=== PATIENT | female | born 1950 | race Caucasian/White ===

== ENCOUNTER 2020-10-14 11:38 | Emergency (ER) | payer MEDICARE ==
[2020-10-14 11:46] VITALS: BP 143/62
[2020-10-14] MEDS ORDERED: HYDROCODONE/ACETAMINOPHEN 5-325 MG TABLET PO ONE (12:09)
--- NOTE | 2020-10-14 12:10 | ER Document Report ---
HPI - HPI Patient complains to provider of: Left foot, right knee injury Time Seen by Provider: 10/14/20 12:04 Onset: This morning Onset/Duration: Sudden Quality of pain: Achy Pain Level: 1 Context: Patient states that she slipped down 3 steps. Patient reports left foot pain and right knee pain. Patient denies any head injury or loss of consciousness. Associated Symptoms: Other - Left foot, right knee injury Exacerbated by: Standing, Movement, Walking Relieved by: Denies Similar symptoms previously: No Recently seen / treated by doctor: No - ROS ROS below otherwise negative: Yes Systems Reviewed and Negative: Yes All other systems reviewed and negative - GASTROINTESTINAL Gastrointestinal: DENIES: Nausea - MUSCULOSKELETAL Musculoskeletal: REPORTS: Extremity pain, Swelling - DERM Skin Color: Normal Skin Problems: None Past Medical History - General Information source: Patient - Social History Smoking Status: Never Smoker Chew tobacco use (# tins/day): No Frequency of alcohol use: Occasional Drug Abuse: None Lives with: Spouse/Significant other Family History: Reviewed & Not Pertinent Patient has homicidal ideation: No GI Medical History: Reports: Hx Gastroesophageal Reflux Disease Past Surgical History: Reports: Hx Orthopedic Surgery Vertical Provider Document - CONSTITUTIONAL Agree With Documented VS: Yes Exam Limitations: No Limitations General Appearance: WD/WN, No Apparent Distress - HEENT HEENT: Atraumatic, Normocephalic - NECK Neck: Normal Inspection - RESPIRATORY Respiratory: No Respiratory Distress - CARDIOVASCULAR Pulses: Normal: Dorsalis pedis - MUSCULOSKELETAL/EXTREMETIES Musculoskeletal/Extremeties: MAEW, Tender - Right knee tenderness to inferior, medial and lateral compartments, no obvious effusion, no laxity with varus or valgus maneuvers. Patellar tendon intact. Left ankle tenderness over lateral malleolar area, left midfoot tenderness, 1+ edema, no obvious ecchymosis, Edema. negative: Eccymosis - NEURO Level of Consciousness: Awake, Alert, Appropriate Motor/Sensory: No Motor Deficit - DERM Integumentary: Warm, Dry, No Rash Course - Re-evaluation Re-evalutation: 10/14/20 13:51 Spoke with patient regarding the patient's radiology report findings. Patient denies any history of any previous patellar injury. Patient advised that she will need to follow-up with orthopedics for further evaluation of patellar injury as well as talus injury. - Vital Signs Vital signs: Temp Pulse Resp BP Pulse Ox 98.5 F 85 20 143/62 H 98 10/14/20 12:01 10/14/20 11:44 10/14/20 11:44 10/14/20 11:44 10/14/20 11:44 - Laboratory Results Critical Laboratory Results Reviewed: No Critical Results - Radiology Results Critical Radiology Results Reviewed: No Critical Results Procedures - Immobilization Right Knee Pre-Proc Neuro Vasc Exam: Normal Immobilizer type: Knee immobilizer Performed by: PCT Post-Proc Neuro Vasc Exam: Normal Alignment checked and good: Yes Left Foot Pre-Proc Neuro Vasc Exam: Normal Immobilizer type: Posterior ankle Performed by: PCT Post-Proc Neuro Vasc Exam: Normal Alignment checked and good: Yes Discharge - Discharge Clinical Impression: Patellar fracture Qualifiers: Encounter type: initial encounter Fracture type: closed Fracture morphology: unspecified fracture morphology Fracture alignment: nondisplaced Laterality: right Qualified Code(s): S82.001A - Unspecified fracture of right patella, initial encounter for closed fracture Avulsion fracture of talus Qualifiers: Encounter type: initial encounter Fracture type: closed Fracture alignment: nondisplaced Laterality: left Qualified Code(s): S92.155A - Nondisplaced avulsion fracture (chip fracture) of left talus, initial encounter for closed fracture Condition: Stable Disposition: HOME, SELF-CARE Instructions: Avulsion Fracture ([facility]), Fractured Patella ([facility]), Ice & Elevation ([facility]), Knee Immobilizing Splint ([facility]), Oral Narcotic Medication ([facility]), Splint Precautions ([facility]) Additional Instructions: Return immediately for any new or worsening symptoms Followup with your primary care provider, call tomorrow to make a followup appointment Follow-up with orthopedics for further management, call tomorrow to make a follow-up appointment. Prescriptions: Folding Walker 1 ea AD PRN PRN #1 PRN Reason: Hydrocodone/Acetaminophen [[place] 5-325 mg Tablet] 1 tab PO Q6 PRN #15 tablet PRN Reason: Referrals: [facility] [Provider Group] - Follow up as needed
--- NOTE | 2020-10-14 13:23 | RADIOLOGY REPORT (SQ) ---
EXAM DESCRIPTION: ANKLE LEFT COMPLETE IMAGES COMPLETED DATE/TIME: 10/14/2020 9:40 am REASON FOR STUDY: fall COMPARISON: None. NUMBER OF VIEWS: Three views. TECHNIQUE: AP, lateral, and oblique radiographic images acquired of the left ankle. LIMITATIONS: None. FINDINGS: MINERALIZATION: Normal. BONES: Some cortical irregularity and tiny osseous fragments along the anterior dorsal aspect of the talus suspicious for acute avulsion fracture fragments. JOINTS: No joint dislocation. Degenerative changes of the midfoot. SOFT TISSUES: No soft tissue swelling. No foreign body. OTHER: Plantar calcaneal spur. IMPRESSION: Small osseous fragments and cortical irregularity at the anterior dorsal aspect of the t alus suspicious for avulsed fracture fragments. TECHNICAL DOCUMENTATION: JOB ID: [id number] 2010 [employer]- All Rights Reserved Reading location - IP/workstation name: [email or web address]
--- NOTE | 2020-10-14 13:25 | RADIOLOGY REPORT (SQ) ---
EXAM DESCRIPTION: FOOT LEFT COMPLETE IMAGES COMPLETED DATE/TIME: 10/14/2020 9:40 am REASON FOR STUDY: fall COMPARISON: None. NUMBER OF VIEWS: Three views. TECHNIQUE: AP, lateral and oblique radiographic images acquired of the left foot. LIMITATIONS: None. FINDINGS: MINERALIZATION: Normal. BONES: Small linear osseous fragment/ cortical irregularity along the anterior dorsal aspect of the t alus suspicious for acute avulsed fracture fragments. No definite additional acute fracture is ident ified. JOINTS: No joint dislocation. Moderate degenerative changes of the midfoot and 1st MTP joint. SOFT TISSUES: No soft tissue swelling. No foreign body. OTHER: Plantar calcaneal spur. IMPRESSION: 1. Small osseous fragments and cortical regularity at the anterior dorsal aspect of the talus suspicious for acute avulsed fracture fragments. 2. Degenerative changes. 3. Plantar calcaneal spur. TECHNICAL DOCUMENTATION: JOB ID: [id number] 2010 [employer]- All Rights Reserved Reading location - IP/workstation name: [email or web address]
--- NOTE | 2020-10-14 13:27 | RADIOLOGY REPORT (SQ) ---
EXAM DESCRIPTION: KNEE RIGHT 4 VIEWS IMAGES COMPLETED DATE/TIME: 10/14/2020 9:41 am REASON FOR STUDY: fall COMPARISON: None. NUMBER OF VIEWS: Four views. TECHNIQUE: AP, lateral, and both oblique radiographic images acquired of the right knee. LIMITATIONS: None. FINDINGS: MINERALIZATION: Normal. BONES: Chronic appearing fragmentation/enthesophyte off the superior aspect of the patella. Cannot d efinitively exclude superimposed acute component. No other acute fracture identified. JOINT: No effusion. Tricompartmental degenerative changes with joint space narrowing and bony spurri ng. SOFT TISSUES: No soft tissue swelling. No radio-opaque foreign body. OTHER: No other significant finding. IMPRESSION: Chronic appearing fragmentation/enthesopathy off the superior patella. Cannot definitiv harmony exclude superimposed acute component. Tricompartmental degenerative changes. TECHNICAL DOCUMENTATION: JOB ID: [id number] 2010 [employer]- All Rights Reserved Reading location - IP/workstation name: [email or web address]
== END 2020-10-14 14:40 | disposition home or self-care (01) ==
LOC: ER 11:38
DX: S82.001A Unspecified fracture of right patella, initial encounter for closed fracture (principal); S92.155A Nondisplaced avulsion fracture (chip fracture) of left talus, initial encounter for closed fracture; W10.9XXA Fall (on) (from) unspecified stairs and steps, initial encounter
CPT/HCPCS: 99284; 73610; 73630; 73564; 29515; A9270